=== PATIENT | female | born 1975 | race Caucasian/White ===

== ENCOUNTER 2022-01-29 08:52 | Day surgery (SDC) | payer BC ==
[2022-01-27 15:04] LABS: BASOPHILS % (AUTO) 0.5 % (0.0-5.0); EOSINOPHILS % (AUTO) 2.7 % (0.0-8.0); HEMATOCRIT 40.7 % (36-48); LYMPHOCYTES % (AUTO) 25.6 % (21.0-51.0); MEAN CORPUSCULAR HEMOGLOBIN 32.1 pg (27.0-33.0); MEAN CORPUSCULAR HGB CONC 33.2 g/dL (32.0-36.0); MEAN CORPUSCULAR VOLUME 96.9 fL (79-99); MONOCYTES % (AUTO) 10.5 % (3.0-13.0); NEUTROPHILS % (AUTO) 60.4 % (40.0-77.0); PLATELET COUNT (AUTO) 253 K/uL (130-400); RED CELL DISTRIBUTION WIDTH 11.8 % (11.0-15.5); WHITE BLOOD COUNT (AUTO) 6.2 K/uL (4.8-10.8)
[2022-01-28 10:31] VITALS: BP 158/74
[~2022-01-29] VITALS: Ht 170.2 cm; Wt 117.2 kg
[2022-01-29] VITALS (20 sets, daily range): BP systolic 129–156; BP diastolic 66–89
[~2022-01-29 08:52] MED LIST: CETI-89 PO; CITA-107 PO; IMIP25TA5 PO; LEVO75TA6 PO
[2022-01-29] MEDS ORDERED: METRONIDAZOLE 500MG/100ML BAG 100 ML ONE (09:26)
[2022-01-29] MEDS ORDERED: PHENAZOPYRIDINE HCL 200 MG TABLET ONE (09:27)
[2022-01-29] MEDS ORDERED: SCOPOLAMINE HYDROBROMIDE 1 EACH ADH..PATCH TD ONE (09:27)
[2022-01-29] MEDS ORDERED: DEXAMETHASONE SOD PHOSPHATE 4 MG/ML 1ML VIAL ONE (09:27)
[2022-01-29] MEDS ORDERED: LACTATED RINGERS 1000ML 1,000 ML IV ONE (09:27)
[2022-01-29] MEDS ORDERED: CEFAZOLIN SODIUM 1 GM VIAL ONE (10:02)
[2022-01-29] MEDS ORDERED: PROPOFOL 10 MG/ML 20ML VIAL IV ONE ×2 (10:04→13:48)
[2022-01-29] MEDS ORDERED: FENTANYL CITRATE PF 50 MCG/1 ML 5ML AMP IV ONE (10:04)
[2022-01-29] MEDS ORDERED: GLYCOPYRROLATE 1 MG/5 ML SYRINGE ONE (10:04)
[2022-01-29] MEDS ORDERED: ONDANSETRON 4MG INJ ONE ×2 (10:04→15:15)
[2022-01-29] MEDS ORDERED: NEOSTIGMINE 5MG/5ML SYR IV ONE (10:04)
[2022-01-29] MEDS ORDERED: MIDAZOLAM HCL 1 MG/ML 2ML VIAL ONE (10:04)
[2022-01-29] MEDS ORDERED: ROCURONIUM 10MG/1ML SYR 10 MG/ML ML ONE ×2 (10:04→12:09)
[2022-01-29] MEDS ORDERED: EPHEDRINE SULFATE 50 MG/ML AMPULE ONE (10:06)
[2022-01-29] MEDS ORDERED: FAMOTIDINE 20MG VIAL IV ONE (10:17)
[2022-01-29] MEDS ORDERED: BUPIVACAINE LIPOSOME/PF 266 MG/20 ML ML IJ SCH (10:30)
[2022-01-29] MEDS ORDERED: MEPERIDINE-PF 25 MG/ML SYG ONE ×2 (14:18→14:28)
[2022-01-29] MEDS ORDERED: MORPHINE 10MG VIAL ONE (15:13)
[2022-01-29] MEDS ORDERED: ACETAMINOPHEN 500 MG TABLET ONE (15:13)
== END 2022-01-29 16:45 | disposition home or self-care (01) ==
LOC: DAH 08:52
PROVIDERS: ATTEND Obstetrics & Gynecology
DX: N93.9 Abnormal uterine and vaginal bleeding, unspecified (principal); N39.46 Mixed incontinence; N72 Inflammatory disease of cervix uteri; N83.8 Other noninflammatory disorders of ovary, fallopian tube and broad ligament; N80.0 Endometriosis of uterus; E66.01 Morbid (severe) obesity due to excess calories; E03.9 Hypothyroidism, unspecified; F32.A Depression, unspecified; Z90.49 Acquired absence of other specified parts of digestive tract; Z98.51 Tubal ligation status; Z98.890 Other specified postprocedural states; Z82.49 Family history of ischemic heart disease and other diseases of the circulatory system; Z83.3 Family history of diabetes mellitus; Z72.89 Other problems related to lifestyle; Z82.0 Family history of epilepsy and other diseases of the nervous system; Z82.61 Family history of arthritis; Z82.5 Family history of asthma and other chronic lower respiratory diseases; Z80.8 Family history of malignant neoplasm of other organs or systems; Z68.39 Body mass index [BMI] 39.0-39.9, adult
CPT/HCPCS: 58571; S2900; 36415; 84703; 85025; 86850; 86900; 86901; 87635; A4344; C9290; C9803; J0690; J1100; J2175; J2250; J2270; J2405; J2704; J2710; J3010; J3490; J7030; J7120